=== PATIENT | male | born 1965 | race Caucasian/White ===

== ENCOUNTER 2022-01-17 15:42 | Emergency (ER) | payer OTHER | END 2022-01-17 18:14 | disposition home or self-care (01) | LOC: FER 15:42 | DX: S42.251A Displaced fracture of greater tuberosity of right humerus, initial encounter for closed fracture (principal); E11.9 Type 2 diabetes mellitus without complications; W19.XXXA Unspecified fall, initial encounter | CPT/HCPCS: 73030 ==

== ENCOUNTER 2022-01-31 03:27 | Day surgery (SDCO) | payer OTHER ==
[~2022-01-31] VITALS: Ht 175.3 cm; Wt 107.0 kg
[2022-01-31 03:45] LABS: EOSINOPHIL 4.4 % (0-5); HCT 32.6 % (42.0-52.0); HGB 11.1 g/dl (13.2-18.0); LYMPHOCYTE 29.7 % (15-48); MCH 32.6 pg (25.0-31.0); MCV 95.6 fL (78.0-100.0); MONOCYTE 15.6 % (0-12); MPV 9.9 fL (6.0-9.5); NEUTROPHIL 49.1 % (41-80); NRBC 0; RBC 3.41 M/uL (4.70-6.00); RDW 15.3 % (11.5-14.0); WBC 4.8 K/uL (4.0-10.5)
[2022-01-31 03:59] LABS: INR 1.93 (0.9-1.2); PROTHROMBIN TIME 21.2 SECONDS (11.8-13.4); PTT 41.4 SECONDS (24.4-34.7)
[2022-01-31 04:18] LABS: LACTIC ACID 0.9 mmol/L (0.4-1.9)
[2022-01-31 04:20] LABS: ACETAMINOPHEN (TYLENOL) < 2.0 ug/mL (10.0-30.0); ALBUMIN 2.9 g/dL (3.4-5.0); ALKALINE PHOSHATASE 161 U/L (46-116); ALT 50 U/L (16-63); AST 47 U/L (15-37); BILIRUBIN - TOTAL 1.3 mg/dL (0.2-1.0); BUN 28 mg/dL (7-18); CHLORIDE 105 mmol/L (98-107); CO2 (BICARBONATE) 27 mmol/L (21-32); CREATININE 1.27 mg/dL (0.67-1.17); GLOBULIN (CALCULATION) 3.6 g/dL; GLUCOSE 161 mg/dL (74-106); LIPASE 100 U/L (73-393); POTASSIUM 4.8 mmol/L (3.5-5.1); TOTAL PROTEIN 6.5 g/dL (6.4-8.2)
[2022-01-31 04:40] LABS: PLT 88 K/uL (150-400)
[2022-01-31 05:16] LABS: BILIRUBIN NEGATIVE (NEGATIVE); BLOOD 3+ Ery/uL (NEGATIVE); CLARITY CLEAR (CLEAR); COLOR YELLOW (YELLOW); GLUCOSE (U) NORMAL (NORMAL); LEUKOCYTES NEGATIVE Leu/uL (NEGATIVE); NITRITE NEGATIVE (NEGATIVE); PROTEIN NEGATIVE (NEGATIVE); SPECIFIC GRAVITY 1.015 (1.001-1.030)
[2022-01-31 05:18] LABS: AMPHETAMINES NEGATIVE (NEGATIVE); BARBITURATES NEGATIVE (NEGATIVE); ECSTASY (MDMA) NEGATIVE (NEGATIVE); MARIJUANA (THC) NEGATIVE (NEGATIVE); METHADONE NEGATIVE (NEGATIVE); OPIATES POSITIVE (NEGATIVE); OXYCODONE NEGATIVE (NEGATIVE)
[2022-01-31 05:27] LABS: BACTERIA TRACE; SQUAMOUS EPITHELIAL CELLS RARE
[2022-01-31 05:48] LABS: CORONAVIRUS 2019 SARS-COV-2 NEGATIVE (NEGATIVE); INFLUENZA A NAA NEGATIVE (NEGATIVE)
--- NOTE | 2022-01-31 09:34 | NUR ---
RECEIVED BY STRETCHER FROM ER, SKIN ASSESSMENT COMPLETED,
[2022-01-31] MEDS ORDERED: AQUAPHOR396 GM TOP (10:58)
[2022-01-31] MEDS ORDERED: LIPITOR40 MG PO (10:58)
[2022-01-31] MEDS ORDERED: BIOFREEZE473 ML TOP (10:59)
[2022-01-31] MEDS ORDERED: BUSPAR5 MG PO (11:01)
[2022-01-31] MEDS ORDERED: FLONASE ALLER15.8 ML (11:03)
[2022-01-31] MEDS ORDERED: LASIX40 MG PO (11:04)
[2022-01-31] MEDS ORDERED: LACTULOSE10 G/15 ML PO (11:05)
[2022-01-31] MEDS ORDERED: INSULIN LI100 UNIT/2 SC (11:09)
[2022-01-31] MEDS ORDERED: LEVEMIR VI100 UNITS/ SC (11:10)
[2022-01-31] MEDS ORDERED: LYRICA75 MG PO (11:11)
[2022-01-31] MEDS ORDERED: MELATONIN 5 MG1 EACH PO (11:12)
[2022-01-31] MEDS ORDERED: MORPHINE SULFAT15 MG PO (11:15)
[2022-01-31] MEDS ORDERED: PRILOSEC20 MG PO (11:15)
[2022-01-31] MEDS ORDERED: ONDANSETRON HCL4 MG PO (11:16)
[2022-01-31] MEDS ORDERED: UROCIT-K10 MEQ PO (11:17)
[2022-01-31] MEDS ORDERED: PROAIR HFA8.5 GM INH (11:19)
[2022-01-31] MEDS ORDERED: RIBOFLAVIN400 MG PO (11:20)
[2022-01-31] MEDS ORDERED: XIFAXAN550 MG PO (11:25)
[2022-01-31] MEDS ORDERED: ALDACTONE100 MG PO (11:26)
[2022-01-31] MEDS ORDERED: ZOLOFT50 MG PO (11:26)
[2022-01-31] MEDS ORDERED: K-TAB ER20 MEQ PO (11:29)
[2022-02-01 06:10] LABS: BASOPHIL 0.9 % (0-2); EOSINOPHIL 2.1 % (0-5); HCT 32.7 % (42.0-52.0); HGB 11.3 g/dl (13.2-18.0); LYMPHOCYTE 15.7 % (15-48); MCH 32.9 pg (25.0-31.0); MCHC 34.6 g/dL (32.0-36.0); MCV 95.3 fL (78.0-100.0); MONOCYTE 12.7 % (0-12); MPV 10.4 fL (6.0-9.5); NEUTROPHIL 68.2 % (41-80); NRBC 0; RBC 3.43 M/uL (4.70-6.00); RDW 15.2 % (11.5-14.0); WBC 5.3 K/uL (4.0-10.5)
[2022-02-01 06:18] LABS: PLT 88 K/uL (150-400)
[2022-02-01 06:43] LABS: ALBUMIN 2.9 g/dL (3.4-5.0); BILIRUBIN - TOTAL 1.7 mg/dL (0.2-1.0); BUN/CREAT RATIO (CALC) 24.1 RATIO; CREATININE 1.08 mg/dL (0.67-1.17); GLOBULIN (CALCULATION) 3.7 g/dL; MAGNESIUM 1.9 mg/dL (1.8-2.4); POTASSIUM 4.1 mmol/L (3.5-5.1); TOTAL PROTEIN 6.6 g/dL (6.4-8.2)
[2022-02-01] MEDS ORDERED: TRAMADOL HCL50 MG PO (08:19)
== END 2022-02-01 12:10 | disposition other institution (70) ==
LOC: FER 03:27 → FTCU 07:37
PROVIDERS: Allergy & Immunology Allergy; Internal Medicine; ADMIT Internal Medicine
DX: K72.90 Hepatic failure, unspecified without coma (principal); K74.60 Unspecified cirrhosis of liver; E66.9 Obesity, unspecified; S42.291A Other displaced fracture of upper end of right humerus, initial encounter for closed fracture; W19.XXXA Unspecified fall, initial encounter; E11.22 Type 2 diabetes mellitus with diabetic chronic kidney disease; I12.9 Hypertensive chronic kidney disease with stage 1 through stage 4 chronic kidney disease, or unspecified chronic kidney disease; N18.2 Chronic kidney disease, stage 2 (mild); G47.33 Obstructive sleep apnea (adult) (pediatric); Z79.84 Long term (current) use of oral hypoglycemic drugs; Z79.4 Long term (current) use of insulin; Z87.820 Personal history of traumatic brain injury; Z86.718 Personal history of other venous thrombosis and embolism; K75.81 Nonalcoholic steatohepatitis (NASH); Z20.822 Contact with and (suspected) exposure to COVID-19; Z68.34 Body mass index [BMI] 34.0-34.9, adult
CPT/HCPCS: 36415; 70450; 70486; 71250; 72125; 80053; 80305; 81001; 82140; 82962; 83605; 83690; 83735; 83880; 84145; 85025; 85610; 85730; 87040; 93005; 96372; G0378; G0480; J1630; J2405; J3486; J7120; U0002

== ENCOUNTER 2022-02-07 08:02 | Emergency (ER) | payer OTHER ==
[~2022-02-07 08:02] MED LIST: ALDACTONE100 MG PO; AQUAPHOR396 GM TOP; BIOFREEZE473 ML TOP; BUSPAR5 MG PO; FLONASE ALLER15.8 ML; INSULIN LI100 UNIT/2 SC; K-TAB ER20 MEQ PO; LACTULOSE10 G/15 ML PO; LASIX40 MG PO; LEVEMIR VI100 UNITS/ SC; LIPITOR40 MG PO; LYRICA75 MG PO; MELATONIN 5 MG1 EACH PO; MORPHINE SULFAT15 MG PO; ONDANSETRON HCL4 MG PO; PRILOSEC20 MG PO; PROAIR HFA8.5 GM INH; RIBOFLAVIN400 MG PO; TRAMADOL HCL50 MG PO; UROCIT-K10 MEQ PO; XIFAXAN550 MG PO; ZOLOFT50 MG PO
[2022-02-07 10:11] LABS: ALBUMIN 3.1 g/dL (3.4-5.0); BUN/CREAT RATIO (CALC) 26.2 RATIO; CREATININE 1.07 mg/dL (0.67-1.17); GLOBULIN (CALCULATION) 3.7 g/dL; POTASSIUM 4.4 mmol/L (3.5-5.1); TOTAL PROTEIN 6.8 g/dL (6.4-8.2)
[2022-02-07 10:23] LABS: BILIRUBIN NEGATIVE (NEGATIVE); BLOOD NEGATIVE Ery/uL (NEGATIVE); CLARITY HAZY (CLEAR); COLOR YELLOW (YELLOW); GLUCOSE (U) NORMAL (NORMAL); LEUKOCYTES NEGATIVE Leu/uL (NEGATIVE); NITRITE NEGATIVE (NEGATIVE); PROTEIN NEGATIVE (NEGATIVE); pH 6.5 (5.0-9.0)
[2022-02-07 10:25] LABS: BASOPHIL 1.2 % (0-2); EOSINOPHIL 3.1 % (0-5); HGB 11.5 g/dl (13.2-18.0); LYMPHOCYTE 22.1 % (15-48); MCHC 34.8 g/dL (32.0-36.0); MCV 94.8 fL (78.0-100.0); MONOCYTE 11.7 % (0-12); MPV 11.2 fL (6.0-9.5); NEUTROPHIL 61.4 % (41-80); NRBC 0; RBC 3.48 M/uL (4.70-6.00); RDW 14.3 % (11.5-14.0); WBC 4.3 K/uL (4.0-10.5)
[2022-02-07 10:38] LABS: INR 1.91 (0.9-1.2); PROTHROMBIN TIME 21.1 SECONDS (11.8-13.4)
[2022-02-07 10:44] LABS: PLT 79 K/uL (150-400)
[2022-02-07 10:56] LABS: LACTIC ACID 1.8 mmol/L (0.4-1.9)
== END 2022-02-07 14:44 | disposition home or self-care (01) ==
LOC: FER 08:02
PROVIDERS: Emergency Medicine
DX: R41.82 Altered mental status, unspecified (principal); I11.0 Hypertensive heart disease with heart failure; I50.9 Heart failure, unspecified; Z20.822 Contact with and (suspected) exposure to COVID-19
CPT/HCPCS: 36415; 70450; 71045; 80053; 81003; 82140; 83605; 84145; 85025; 85610; 87040; C9113; J0692; J1885; J7030; U0002